=== PATIENT | female | born 1965 | race Asian ===

== ENCOUNTER 2022-07-07 04:35 | Day surgery (SDC) | payer OTHER ==
[2022-07-05 15:04] VITALS: BMI 24.4
[2022-07-07 12:28] VITALS: PULSE 74; RESP 16; TEMP 97.3
[2022-07-07 13:03] VITALS: BP 126/71
== END 2022-07-07 13:02 | disposition home or self-care (01) ==
LOC: JASU-ENDO 04:35
PROVIDERS: ATTEND Internal Medicine Gastroenterology
PROC: 0DB68ZX Excision of Stomach, Via Natural or Artificial Opening Endoscopic, Diagnostic (ICD-10-PCS; 2022-07-07)
PROC: 0DB78ZX Excision of Stomach, Pylorus, Via Natural or Artificial Opening Endoscopic, Diagnostic (ICD-10-PCS; 2022-07-07)
PROC: 0DJD8ZZ Inspection of Lower Intestinal Tract, Via Natural or Artificial Opening Endoscopic (ICD-10-PCS; principal; 2022-07-07 10:15)
DX: Z12.11 Encounter for screening for malignant neoplasm of colon (principal); K29.50 Unspecified chronic gastritis without bleeding
CPT/HCPCS: 43239; G0121; 88305-TC; 88342-TC